=== PATIENT | female | born 1990 | race Caucasian/White ===

== ENCOUNTER → 2016-04-07 | Outpatient (REF) | payer OTHER | LOC: M SMT 16:50 | PROVIDERS: ATTEND Nurse Practitioner Family | DX: N39.0 Urinary tract infection, site not specified (principal) ==

== ENCOUNTER → 2016-05-12 | Outpatient (REF) | payer OTHER | LOC: M SMT 12:48 | PROVIDERS: ATTEND Nurse Practitioner Family | DX: R31.9 Hematuria, unspecified (principal); N39.0 Urinary tract infection, site not specified ==

== ENCOUNTER → 2016-05-21 | Outpatient (REF) | payer OTHER ==
[2016-05-21 13:21] LABS: CONTROL LINE UCG INT CTR LINE PRESENT
== END ==
LOC: M SMT 12:54
PROVIDERS: ATTEND Nurse Practitioner Family
DX: R31.9 Hematuria, unspecified (principal)

== ENCOUNTER → 2016-06-03 | Outpatient (CLI) | payer OTHER ==
[~2016-06-03] MED LIST: ISOVUE-370 76% 100ML VIAL (Q9967) As Ordered ONE
--- NOTE | 2016-06-03 09:58 | REP ---
Clinical: Hematuria. Technique: Axial precontrast, contrast enhanced, and delayed images of the abdomen and pelvis using 100 ml Isovue 370 intravenous contrast material with coronal and sagittal re-formations. Findings: Evaluation of the urinary tract system demonstrates two 2 mm nonobstructing left renal calculi and few bilateral 1 mm nonobstructing renal calculi. There is no associated hydroureteronephrosis, perinephric stranding, cystic or renal mass lesion. Bilateral ureters and bladder are normal. Liver, spleen, pancreas, gallbladder, bilateral adrenal glands are normal. The enteric system is without obstruction or acute inflammatory process. Pelvis demonstrates normal bladder and age appropriate uterus / adnexa. No pelvic fluid or ascites. No adenopathy. No mass lesion. No free air. Vasculature is normal. Surrounding musculoskeletal structures are intact. Impression: 1. Two 2 mm nonobstructing left renal calculi and few bilateral punctate/1 mm nonobstructing renal calculi. No hydroureteronephrosis. 2. Remainder examination is normal. Signed by Stef Campos MD 06/03/2016 09:50 A
== END ==
LOC: M RAD 08:52
PROVIDERS: ATTEND Nurse Practitioner Family
DX: R31.9 Hematuria, unspecified (principal)